=== PATIENT | female | born 1990 | race Two or more races ===

== ENCOUNTER 2024-04-15 15:33 | Emergency (ER) | payer MEDICAID ==
[~2024-04-15] VITALS: Ht 147.3 cm; Wt 61.9 kg
[2024-04-15 16:32] LABS: Basophils # (auto) 0.1 10 ^3/uL (0-0.2); Eosinophils # (auto) 0.5 10 ^3/uL (0-0.8); Hematocrit 40.9 % (36.0-46.0); Hemoglobin 13.6 g/dL (12.2-16.2); Lymphocytes # (auto) 2.3 10 ^3/uL (0.4-5.4); Lymphocytes % (auto) 20.1 % (10.0-50.0); Mean Corpuscular Hgb Conc. 33.4 g/dL (32.0-36.0); Mean Corpuscular Volume 92.9 fL (80.0-100.0); Monocytes # (auto) 1.1 10 ^3/uL (0-1.3); Monocytes % (auto) 9.3 % (0.0-12.0); Neutrophils # (auto) 7.5 10 ^3/uL (1.6-8.6); Neutrophils % (auto) 65.6 % (37.0-80.0); Nucleated Red Blood Cells % 0.1 %; Red Cell Distribution Width 13.6 % (11.8-14.3); White Blood Cell 11.4 10^3/uL (4.4-10.8)
[2024-04-15 16:54] LABS: Urine Bacteria FEW /hpf (None Seen); Urine Blood Negative /uL (Negative); Urine Clarity Turbid (Clear); Urine Color Light-Yellow (Yellow); Urine Mucus FEW (None Seen); Urine Protein, UAD TRACE (Negative); Urine Specific Gravity 1.019 (1.001-1.035); Urine Urobilinogen Normal (Negative); Urine WBC 23 /hpf (0 - 5)
[2024-04-15 16:59] LABS: Alanine Aminotransferase 10 U/L (7-40); Albumin 4.1 g/dL (3.2-4.8); Alkaline Phosphatase 79 U/L (46-116); Anion Gap 6 (5-15); Aspartate Aminotransferase 14 U/L (13-40); BUN/Creatinine Ratio 12.8 (10.0-20.0); Blood Urea Nitrogen 10 mg/dL (9-23); Calcium 9.3 mg/dL (8.7-10.4); Carbon Dioxide 24 mmol/L (20-30); Chloride 108 mmol/L (98-107); Glucose 88 mg/dL (74-106); Lipase 30 U/L (12-53); Potassium 4.1 mmol/L (3.5-5.1); Sodium 138 mmol/L (136-145)
[2024-04-15 17:00] LABS: Bilirubin, Total 0.5 mg/dL (0.2-1.0); Total Protein 6.9 g/dL (5.7-8.2)
[2024-04-15] MEDS ORDERED: ZOFR4T PO (17:43)
[2024-04-15] MEDS ORDERED: CEPH500C PO (17:43)
[2024-04-15] MEDS ORDERED: FAMO20TA10 PO (17:43)
[2024-04-15 20:43] VITALS: TEMP 98.3; O2SAT 98
[2024-04-15] MEDS: SODIUM CHLORIDE 0.9% 1,000 ML IV ONE (21:00)
[2024-04-15] MEDS: PANTOPRAZOLE 40 MG/10 ML VIAL INJ IV ONE (21:05)
[2024-04-15] MEDS: MORPHINE SULFATE 4 MG/ML SYR/VIAL IV ONE (21:06)
[2024-04-15] MEDS: ONDANSETRON HCL 4 MG/2 ML VIAL IV ONE (21:06)
[2024-04-15 21:36] VITALS: BP 133/76; PULSE 70; RESP 16
== END 2024-04-15 21:41 | disposition home or self-care (01) ==
LOC: ER 15:33
DX: K29.00 Acute gastritis without bleeding (principal); N39.0 Urinary tract infection, site not specified; R10.84 Generalized abdominal pain
CPT/HCPCS: 36415; 74176; 80053; 81001; 81025; 83690; 85025; 96361; 96374; 96375; 99285; C9113; J2270; J2405; J7030

== ENCOUNTER 2024-04-23 12:36 | Inpatient (IN) | payer MEDICAID ==
[~2024-04-23] VITALS: Ht 147.3 cm; Wt 65.4 kg
[2024-04-23 12:15] VITALS: BP 115/47; PULSE 68; RESP 19; TEMP 98.3; O2SAT 100
[~2024-04-23 12:36] MED LIST: CEPH500C PO; FAMO20TA10 PO; ZOFR4T PO
[2024-04-23 13:45] LABS: Basophils # (auto) 0.1 10 ^3/uL (0-0.2); Basophils % (auto) 0.6 % (0.0-2.0); Eosinophils # (auto) 0.3 10 ^3/uL (0-0.8); Eosinophils % (auto) 3.1 % (0.0-7.0); Hematocrit 41.8 % (36.0-46.0); Hemoglobin 13.7 g/dL (12.2-16.2); Mean Corpuscular Hemoglobin 30.5 pg (28.0-32.0); Mean Corpuscular Hgb Conc. 32.8 g/dL (32.0-36.0); Mean Corpuscular Volume 92.9 fL (80.0-100.0); Monocytes # (auto) 0.9 10 ^3/uL (0-1.3); Monocytes % (auto) 8.5 % (0.0-12.0); Neutrophils # (auto) 7.1 10 ^3/uL (1.6-8.6); Neutrophils % (auto) 68.8 % (37.0-80.0); Red Blood Cells 4.49 10^6/uL (4.0-5.20); Red Cell Distribution Width 13.7 % (11.8-14.3); White Blood Cell 10.3 10^3/uL (4.4-10.8)
[2024-04-23 14:05] LABS: Albumin 4.1 g/dL (3.2-4.8); Alkaline Phosphatase 72 U/L (46-116); Anion Gap 5 (5-15); Aspartate Aminotransferase < 8 U/L (13-40); BUN/Creatinine Ratio 16.7 (10.0-20.0); Bilirubin, Total 0.3 mg/dL (0.2-1.0); Blood Urea Nitrogen 13 mg/dL (9-23); Calcium 9.1 mg/dL (8.7-10.4); Carbon Dioxide 25 mmol/L (20-30); Chloride 108 mmol/L (98-107); Glucose 71 mg/dL (74-106); Lipase 49 U/L (12-53); Sodium 138 mmol/L (136-145); Total Protein 6.8 g/dL (5.7-8.2)
[2024-04-23 14:11] LABS: Alanine Aminotransferase < 9 U/L (7-40)
[2024-04-23 14:49] LABS: Urine Bacteria None Seen /hpf (None Seen)
[2024-04-23 15:06] LABS: Urine Blood 1+ /uL (Negative); Urine Clarity Turbid (Clear); Urine Color Colorless (Yellow); Urine Protein, UAD TRACE (Negative); Urine Specific Gravity 1.025 (1.001-1.035); Urine Urobilinogen Normal (Negative); Urine WBC 119 /hpf (0 - 5); Urine pH 5.5 (5.0-9.0)
[2024-04-23] MEDS: SODIUM CHLORIDE 0.9% 1,000 ML IV ONE ×2 (16:29→16:33)
[2024-04-23] MEDS: MAALOX PLUS or MAALOX 30 ML PO ONE (16:32)
[2024-04-23] MEDS: DONNATAL 5ml ORAL Elix (BELLADONNA ALK-PHENOBARB) PO ONE (16:33)
[2024-04-23] MEDS: LIDOCAINE VISCOUS 2% 15ML UD PO ONE (16:33)
[2024-04-23] MEDS: cefTRIAXone 1GM/50ML D5W 50 ML IV ONE (16:39)
[2024-04-23] MEDS: ONDANSETRON HCL 4 MG/2 ML VIAL IV ONE (16:45)
[2024-04-23] MEDS: MORPHINE SULFATE 4 MG/ML SYR/VIAL IV ONE (16:46)
[2024-04-23 17:58] VITALS: PULSE 71; RESP 19; O2SAT 96
[2024-04-23] MEDS ORDERED: ONDANSETRON HCL 4 MG/2 ML VIAL IV PRN (20:30)
[2024-04-24] VITALS (7 sets, daily range): BP systolic 91–106; BP diastolic 49–68; PULSE 56–81; RESP 16–19; TEMP 97.8–98.4; O2SAT 97–99
[2024-04-24] MEDS: HYDROcodone-ACET 5/325MG TAB PO PRN (01:22)
[2024-04-24] MEDS: PANTOPRAZOLE 40 MG TAB PO SCH (06:21)
[2024-04-24 06:35] LABS: Basophils # (auto) 0.1 10 ^3/uL (0-0.2); Eosinophils # (auto) 0.4 10 ^3/uL (0-0.8); Eosinophils % (auto) 3.3 % (0.0-7.0); Hematocrit 38.9 % (36.0-46.0); Hemoglobin 12.9 g/dL (12.2-16.2); Lymphocytes # (auto) 2.8 10 ^3/uL (0.4-5.4); Lymphocytes % (auto) 25.1 % (10.0-50.0); Mean Corpuscular Hemoglobin 30.9 pg (28.0-32.0); Mean Corpuscular Hgb Conc. 33.1 g/dL (32.0-36.0); Mean Corpuscular Volume 93.5 fL (80.0-100.0); Monocytes # (auto) 0.9 10 ^3/uL (0-1.3); Monocytes % (auto) 8.2 % (0.0-12.0); Neutrophils # (auto) 6.9 10 ^3/uL (1.6-8.6); Neutrophils % (auto) 62.4 % (37.0-80.0); Nucleated Red Blood Cells % 0.1 %; Red Blood Cells 4.16 10^6/uL (4.0-5.20); Red Cell Distribution Width 13.8 % (11.8-14.3); White Blood Cell 11.1 10^3/uL (4.4-10.8)
[2024-04-24 06:38] LABS: Chloride 110 mmol/L (98-107); Potassium 4.2 mmol/L (3.5-5.1); Sodium 138 mmol/L (136-145)
[2024-04-24 06:39] LABS: Anion Gap 2 (5-15); Carbon Dioxide 26 mmol/L (20-30)
[2024-04-24 06:40] LABS: Calcium 8.4 mg/dL (8.5-10.1)
[2024-04-24 06:44] LABS: Glucose 89 mg/dL (74-106)
[2024-04-24 06:45] LABS: BUN/Creatinine Ratio 23.1 (10.0-20.0); Blood Urea Nitrogen 15 mg/dL (9-23)
[2024-04-24 09:36] LABS: Triglycerides 87 mg/dL (< 150)
[2024-04-24 09:37] LABS: LDL Cholesterol 52 mg/dL (< 100)
[2024-04-24 09:38] LABS: Cholesterol 95 mg/dL (< 200); HDL Cholesterol 31 mg/dL (40-59)
[2024-04-24] MEDS: ACETAMINOPHEN 325 MG TAB PO PRN (11:02)
[2024-04-24] MEDS ORDERED: DOCUSATE SOD 100 MG CAP PO PRN (13:45)
[2024-04-24] MEDS: DICYCLOMINE HCL 10 MG CAP PO ONE (14:42)
[2024-04-24] MEDS: cefTRIAXone 1GM/50ML D5W 50 ML IV SCH (17:43)
[2024-04-24] MEDS: FLEET ENEMA(ADULT) 135 ML PR ONE (21:21)
[2024-04-24] MEDS: KETOROLAC TROMETH 30 MG/ML 1ML VIAL IV PRN (21:22)
[2024-04-24] MEDS: TEMAZEPAM 15 MG CAP PO PRN (21:34)
[2024-04-24 22:12] LABS: Erythrocyte Sedimentation Rate 7 mm/hr (0-20)
[2024-04-25 01:00] VITALS: BP 96/42; PULSE 78; RESP 18; TEMP 97.6; O2SAT 97
[2024-04-25 05:00] VITALS: BP 100/69; PULSE 69; RESP 18; TEMP 97.8; O2SAT 96
[2024-04-25 06:31] LABS: Chloride 109 mmol/L (98-107); Potassium 3.7 mmol/L (3.5-5.1); Sodium 140 mmol/L (136-145)
[2024-04-25 06:32] LABS: Anion Gap 2 (5-15); Calcium 8.6 mg/dL (8.5-10.1); Carbon Dioxide 29 mmol/L (20-30)
[2024-04-25 06:37] LABS: BUN/Creatinine Ratio 14.9 (10.0-20.0); Blood Urea Nitrogen 10 mg/dL (9-23); Glucose 97 mg/dL (74-106)
[2024-04-25 06:38] LABS: CRP High Sensitivity 0.13 mg/dL (<1.0)
[2024-04-25 07:09] LABS: Basophils # (auto) 0.1 10 ^3/uL (0-0.2); Basophils % (auto) 0.6 % (0.0-2.0); Eosinophils # (auto) 0.3 10 ^3/uL (0-0.8); Eosinophils % (auto) 2.5 % (0.0-7.0); Hematocrit 37.2 % (36.0-46.0); Hemoglobin 12.5 g/dL (12.2-16.2); Lymphocytes % (auto) 18.7 % (10.0-50.0); Mean Corpuscular Hemoglobin 31.1 pg (28.0-32.0); Mean Corpuscular Hgb Conc. 33.6 g/dL (32.0-36.0); Mean Corpuscular Volume 92.5 fL (80.0-100.0); Monocytes # (auto) 0.9 10 ^3/uL (0-1.3); Monocytes % (auto) 8.2 % (0.0-12.0); Neutrophils # (auto) 7.3 10 ^3/uL (1.6-8.6); Red Blood Cells 4.02 10^6/uL (4.0-5.20); Red Cell Distribution Width 13.7 % (11.8-14.3); White Blood Cell 10.4 10^3/uL (4.4-10.8)
[2024-04-25 08:00] VITALS: BP 104/64; PULSE 60; RESP 16; TEMP 97.8; O2SAT 100
[2024-04-25 12:00] VITALS: BP 107/60; PULSE 79; RESP 16; TEMP 99.4; O2SAT 97
[2024-04-25 13:52] VITALS: BP 107/60; PULSE 79; RESP 16; TEMP 98.7; O2SAT 97
== END 2024-04-25 15:05 | disposition home or self-care (01) | DRG 254 ==
LOC: ER 12:39 → OVERFLOW 20:32 → WEST WING 20:32
PROVIDERS: ADMIT Internal Medicine Pulmonary Disease; ATTEND Internal Medicine Pulmonary Disease
DX: K59.00 Constipation, unspecified (principal); K29.70 Gastritis, unspecified, without bleeding; N30.00 Acute cystitis without hematuria
CPT/HCPCS: 36415; 74176; 76775; 80048; 80053; 80061; 81001; 82270; 83036; 83605; 83690; 84702; 85025; 85652; 86141; 87086; G0378; J1885; J2405